=== PATIENT | female | born 1995 | race Caucasian/White ===

== ENCOUNTER 2019-08-08 12:05 | Outpatient (CLI) | payer OTHER | END 2019-08-08 12:27 | disposition home or self-care (01) | LOC: RAD 12:05 | DX: M25.511 Pain in right shoulder (principal); M54.5 Low back pain; M25.551 Pain in right hip; M25.562 Pain in left knee; M25.552 Pain in left hip; M25.561 Pain in right knee; M79.641 Pain in right hand ==